=== PATIENT | male | born 1995 | race Caucasian/White ===

== ENCOUNTER 2016-05-30 20:07 | Emergency (ER) | payer BC, OTHER ==
[2016-05-30 21:23] VITALS: BP 162/75
[2016-05-30] MEDS ORDERED: Sulfamethox/Trimethoprim DS 800/160* TAB PO ONE (21:58)
[2016-05-30] MEDS ORDERED: Phenazopyridine TAB* 100 MG PO ONE (21:58)
--- NOTE | 2016-05-30 21:58 | UC ---
Complaint Male HPI - HPI Summary HPI Summary: 3 DAYS OF URINARY FREQUENCY AND DYSURIA. NO FEVER, BACK PAIN OR NAUSEA. DUE TO URINARY DISCOMFORT PT HAS NOT BEEN DRINKING VERY MUCH WATER IN AN ATTEMPT TO REDUCE HIS NEED TO URINATE. DENIES ANY H/O SEXUAL ACTIVITY. - History of Current Complaint Chief Complaint: UCLowerExtremity Stated Complaint: UTI COMPLAINT Time Seen by Provider: 05/30/16 21:50 Hx Obtained From: Patient Onset/Duration: Gradual Onset, Lasting Days, Still Present Timing: Constant Severity Initially: Moderate Severity Currently: Moderate Pain Intensity: 6 Pain Scale Used: 0-10 Numeric Character: Burning Aggravating Factor(s): Voiding Alleviating Factor(s): Nothing Associated Signs And Symptoms: Positive: Negative - Allergies/Home Medications Allergies/Adverse Reactions: Allergies Allergy/AdvReac Type Severity Reaction Status Date / Time No Known Allergies Allergy Verified 05/30/16 21:24 Home Medications: Home Medications Aspirin TAB* [Aspirin 325 MG TAB*] 05/30/16 [History] PMH/Surg Hx/FS Hx/Imm Hx Cardiovascular History Of: Reports: Hypertension - Surgical History Surgical History: Yes Surgery Procedure, Year, and Place: right ankle - Family History Known Family History: Positive: Hypertension - Social History Alcohol Use: None Substance Use Type: None Smoking Status (MU): Never Smoked Tobacco - Immunization History Most Recent Influenza Vaccination: not sure Review of Systems Constitutional: Negative Respiratory: Negative Cardiovascular: Negative Gastrointestinal: Negative Genitourinary: Dysuria, Frequency, Urgency All Other Systems Reviewed And Are Negative: Yes Physical Exam Triage Information Reviewed: Yes Appearance: Well-Appearing, No Pain Distress, Well-Nourished Vital Signs: Initial Vital Signs Temp 98.2 F 05/30/16 21:19 Pulse 102 05/30/16 21:19 Resp 18 05/30/16 21:19 BP 162/75 05/30/16 21:19 Pulse Ox 100 05/30/16 21:19 Vital Signs Reviewed: Yes Eyes: Positive: Conjunctiva Clear ENT: Positive: Hearing grossly normal Neck: Positive: Supple Respiratory: Positive: No respiratory distress, No accessory muscle use Cardiovascular: Positive: Pulses Normal Abdomen Description: Positive: Nontender, Soft. Negative: CVA Tenderness (R), CVA Tenderness (L), Distended, Guarding Musculoskeletal: Positive: No Edema Neurological: Positive: Alert Psychological: Positive: Age Appropriate Behavior Skin: Negative: rashes Diagnostics - Laboratory Diagnostic Studies Completed/Ordered: URINE DIP SP. GR > 1.030, TRACE LEUKS Complaint Male Course/Dx - Differential Dx/Diagnosis Provider Diagnoses: CYSTITIS Discharge - Discharge Plan Condition: Stable Disposition: HOME Prescriptions: Phenazopyridine TAB* [Pyridium TAB*] 200 mg PO TID #6 tab Sulfamethox/Trimethoprim DS* [Bactrim DS 800/160 TAB*] 1 tab PO BID #5 tab Patient Education Materials: Urinary Tract Infection in Men (ED) Referrals: Josefina Briones MD [Primary Care Provider] - If Needed Additional Instructions: WE WILL SEND YOUR URINE FOR CULTURE AND TREAT YOU BASED ON SYMPTOMS. IT IS POSSIBLE THAT YOUR SYMPTOMS ARE SIMPLY DUE TO VERY CONCENTRATED URINE. BE SURE TO HYDRATE, HYDRATE, HYDRATE. SEEK FOLLOW-UP IF NOT IMPROVING EXPECTED.
== END 2016-05-30 22:07 | disposition home or self-care (01) ==
LOC: UCEAST 20:07
DX: N30.90 Cystitis, unspecified without hematuria (principal)
CPT/HCPCS: 81003; 87086; 99212; A9270-GY; G0463

== ENCOUNTER 2016-05-31 09:43 | Emergency (ER) | payer BC, OTHER ==
[2016-05-31] MEDS ORDERED: HYDROmorphone* 1 MG/ML 1 ML SYR IV ONE (10:05)
[2016-05-31] MEDS: NS 0.9% 1000 ML* 2,000 ML IV ONE ×2 (10:13→13:13)
[2016-05-31] MEDS: Ondansetron INJ* 2 MG/ML VIAL IV ONE ×3 (10:13→15:25)
[2016-05-31 10:16] LABS: Hematocrit 45 % (42-52); Hemoglobin 14.7 g/dl (14.0-18.0); Mean Corpuscular HGB Conc 33 g/dl (31-36); Mean Corpuscular Hemoglobin 27 pg (27-31); Mean Corpuscular Volume 82 fL (80-94); Mean Platelet Volume 10 um3 (7.4-10.4); Red Blood Count 5.44 10^6/ul (4.0-5.4); Red Cell Distribution Width 14 % (10.5-15)
[2016-05-31] MEDS ORDERED: HYDROmorphone* 1 MG/ML 1 ML SYR IV SLOW PU ONE ×4 (10:22→15:25)
[2016-05-31 10:35] LABS: Albumin 4.6 g/dL (3.2-5.2); BUN/Creatinine Ratio 12.6 (8-20); EGFR African American 116.1 (>60); EGFR Non-African American 90.3 (>60); Globulin 3.8 g/dL (2-4); Potassium 3.9 mmol/L (3.5-5.0); Total Protein 8.4 g/dL (6.4-8.9)
[2016-05-31] MEDS ORDERED: Ondansetron INJ* 2 MG/ML VIAL ONE (10:40)
[2016-05-31] MEDS ORDERED: Ondansetron INJ* 2 MG/ML VIAL IV ONE ×2 (12:15→15:25)
[2016-05-31] MEDS ORDERED: Iohexol 300* (CONTRAST) 10 ML SDV IV ONE (13:44)
--- NOTE | 2016-05-31 14:41 | RAD ---
Indication: Pelvic pain, evaluate for abscess. Contrast: Administered 147.2 ml of OMNIPAQUE 300 mg/ml CT of the pelvis was performed after IV contrast administration. Coronal and sagittal reconstructed images were obtained. No retroperitoneal or pelvic lymphadenopathy is noted. The urinary bladder is unremarkable. No hernias are noted. Dilated small bowel noted. Small inguinal lymph nodes are noted. There is a fluid collection just below the tip of the penis measuring 3.2 x 3.6 cm which is just under the skin. This should be palpable. This is likely a fluid collection such as abscess rather than metastases. Clinical correlation is suggested. The testes are not visualized on this study. IMPRESSION: Just below the tip of the penis there is a fluid collection which appears subcutaneous measuring 3.6 x 3.2 cm which may represent a fluid collection such as an abscess. Clinical correlation is suggested. Alternatively this could represent the testes although this appears to be somewhat superficial for testes.
[2016-05-31] MEDS ORDERED: HYDROmorphone* 1 MG/ML 1 ML SYR ONE (15:24)
[2016-05-31] MEDS ORDERED: Piperac/Tazob 3.375 gm in NS* 3.375 GM/100 ML BAG IVPB ONE (15:26)
[2016-05-31] MEDS ORDERED: NS 0.9% 1000 ML* 2,000 ML IV ONE (16:08)
--- NOTE | 2016-05-31 16:37 | ED ---
Hugo Cm Salem, scribed for Jace Sotelo MD on 05/31/16 at 1103 . GI/ HPI - HPI Summary HPI Summary: Patient is a 20 y/o male who presents to the ED with penile pain for the past 2 days. He describes the pain as stabbing, but states he can urinate in spite of the pain. He denies fever, chills, swelling, or erythema. Pt is nauseated upon examination. Pain is exacerbated with recumbent position. 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 - History of Current Complaint Chief Complaint: EDUrogenitalProblems Time Seen by Provider: 05/31/16 10:46 Stated Complaint: PAIN IN PENIS Hx Obtained From: Patient Onset/Duration: Started Days Ago - 2 days. Severity: Moderate Current Severity: Moderate Pain Intensity: 10 Additional Locations for Males: Penis Pain Characteristics: Other: - Stabbing. Associated Signs and Symptoms: Positive: Nausea, Other: - No chills, swelling, or erythema.. Negative: Fever Additional Signs & Symptoms: Negative: Penile Swelling Aggravating Factor(s): Nothing Alleviating Factor(s): Position - Sitting up or stnading. - Allergy/Home Medications Allergies/Adverse Reactions: Allergies Allergy/AdvReac Type Severity Reaction Status Date / Time No Known Allergies Allergy Verified 05/30/16 21:24 PMH/Surg Hx/FS Hx/Imm Hx Cardiovascular History: Reports: Hx Hypertension - Surgical History Surgery Procedure, Year, and Place: right ankle Infectious Disease History: No Infectious Disease History: Denies: History Other Infectious Disease, Traveled Outside the [place] in Last 30 Days - Family History Known Family History: Positive: Hypertension - Social History Alcohol Use: None Substance Use Type: Reports: None Smoking Status (MU): Never Smoked Tobacco Review of Systems Negative: Fever, Chills Genitourinary: Other - No swelling or erythema. Positive: pain - Penile. All Other Systems Reviewed And Are Negative: Yes Physical Exam - Summary Physical Exam Summary: The patient is well-nourished in no acute distress. The skin is warm and diaphoretic. HEENT: The head is normocephalic and atraumatic. The pupils are equal and reactive. The conjunctivae are clear and without drainage. Nares are patent and without drainage. Mouth reveals moist mucous membranes and the throat is without erythema and exudate. The external ears are intact. The ear canals are patent and without drainage. The tympanic membranes are intact. Neck is supple with full range of motion and non-tender. There are no carotid bruits. Respiratory: Chest is non-tender. Lungs are clear to auscultation and breath sounds are symmetrical and equal. Cardiovascular: Hear is regular rate and rhythm. There is no murmur or rub auscultated. There is no peripheral edema and pulses are symmetrical and equal. Abdomen: The abdomen is soft and non-tender. Obese. No CVA tenderness. Musculoskeletal: There is no back pain noted. Extremities are non-tender with full range of motion. There is good capillary refill. There is no peripheral edema or calf tenderness elicited. exam: Penis buried into abd. Testicles descended and non-tender. No swelling or redness of testicles. Neurological: Patient is alert and oriented to person, place and time. The patient has symmetrical motor strength in all four extremities. Psychiatric: The patient has an appropriate affect and does not exhibit any anxiety or depression. Triage Information Reviewed: Yes Vital Signs On Initial Exam: Initial Vitals Temp Pulse Resp BP Pulse Ox 96.4 F 121 20 159/128 98 05/31/16 09:45 05/31/16 09:45 05/31/16 09:45 05/31/16 09:45 05/31/16 09:45 Vital Signs Reviewed: Yes - Jane Coma Scale Coma Scale Total: 15 Diagnostics - Vital Signs Vital Signs Temp Pulse Resp BP Pulse Ox 05/31/16 10:26 23 05/31/16 10:13 25 05/31/16 09:45 96.4 F 121 20 159/128 98 - Laboratory Lab Results: Lab Results 05/31/16 05/31/16 Range/Units 10:04 10:04 WBC 18.0 H (3.5-10.8) 10^3/ul RBC 5.44 H (4.0-5.4) 10^6/ul Hgb 14.7 (14.0-18.0) g/dl Hct 45 (42-52) % MCV 82 (80-94) fL MCH 27 (27-31) pg MCHC 33 (31-36) g/dl RDW 14 (10.5-15) % Plt Count 273 (150-450) 10^3/ul MPV 10 (7.4-10.4) um3 Neut % (Auto) 76.7 (38-83) % Lymph % (Auto) 16.2 L (25-47) % [place] % (Auto) 5.7 (1-9) % Eos % (Auto) 0.8 (0-6) % Baso % (Auto) 0.6 (0-2) % Absolute Neuts (auto) 13.9 H (1.5-7.7) 10^3/ul Absolute Lymphs (auto) 2.9 (1.0-4.8) 10^3/ul Absolute Monos (auto) 1.0 H (0-0.8) 10^3/ul Absolute Eos (auto) 0.1 (0-0.6) 10^3/ul Absolute Basos (auto) 0.1 (0-0.2) 10^3/ul Absolute Nucleated RBC 0 10^3/ul Nucleated RBC % 0 Sodium 137 (133-145) mmol/L Potassium 3.9 (3.5-5.0) mmol/L Chloride 101 (101-111) mmol/L Carbon Dioxide 23 (22-32) mmol/L Anion Gap 13 H (2-11) mmol/L BUN 13 (6-24) mg/dL Creatinine 1.03 (0.67-1.17) mg/dL Est GFR ( Amer) 116.1 (>60) Est GFR (Non-Af Amer) 90.3 (>60) BUN/Creatinine Ratio 12.6 (8-20) Glucose 133 H (70-100) mg/dL Calcium 10.0 (8.6-10.3) mg/dL Total Bilirubin 1.00 (0.2-1.0) mg/dL AST 36 (13-39) U/L ALT 50 (7-52) U/L Alkaline Phosphatase 103 (34-104) U/L Total Protein 8.4 (6.4-8.9) g/dL Albumin 4.6 (3.2-5.2) g/dL Globulin 3.8 (2-4) g/dL Albumin/Globulin Ratio 1.2 (1-3) Result Diagrams: 05/31/16 10:04 05/31/16 10:04 Lab Statement: Any lab studies that have been ordered have been reviewed, and results considered in the medical decision making process. - CT PELVIS CT Interpretation Completed By: Radiologist - IMPRESSION: Just below the tip of the penis there is a fluid collection which appears subcutaneous measuring 3.6 x 3.2 cm which may represent a fluid collection such as an abscess. Clinical correlation is suggested. Alternatively this could represent the testes although this appears to be somewhat superficial for testes. Re-Evaluation - Re-Evaluation First Eval Re-Evaluation Time: 15:17 Comment: Informed pt of consultations and discussed plan. Second Eval Re-Evaluation Time: 15:22 Comment: Still in pain. Will give pain medication and re-evaluate. Third Eval Re-Evaluation Time: 16:05 Comment: Discussed plan to transfer. Pt is agreeable. GIGU Course/Dx - Diagnoses Differential Diagnoses - Male: Phimosis/Paraphimosis, Renal Calculi, Sepsis, Testicular Torsion, Urinary Tract Infection, Other - infection Provider Diagnoses: Pelvic abscess, Congenital buried penis - Physician Notifications Discussed Care Of Patient With: Dr. Patel (Urologist) @ 1151. Dr. Harrison (pt' s specialist's office in [place], [place]) @ 1233. States pt shouldnt be having pain as his condition does not cause it. He is unable to offer any advice. Dr. Kaye (ED, [facility]) @ 7045. Will accept pt. Discharge - Discharge Plan Condition: Stable Disposition: TRANS HIGHER [facility] OF CARE FAC Referrals: Josefina Briones MD [Primary Care Provider] - The documentation as recorded by the Hugo mckeon Salem accurately reflects the service I personally performed and the decisions made by me, Jace Sotelo MD.
[2016-05-31 16:44] LABS: C Reactive Protein 15.75 mg/L (< 5.00)
[2016-05-31 17:08] VITALS: BP 182/109
[2016-05-31 17:20] LABS: Urine Bacteria Absent (Absent); Urine Bilirubin Negative (Negative); Urine Glucose Negative (Negative); Urine Nitrite Positive (Negative)
== END 2016-05-31 17:07 | disposition short-term general hospital (02) ==
LOC: ED 09:43
DX: Q55.64 Hidden penis (principal)
CPT/HCPCS: 36415; 72193; 80053; 81003; 81015; 83605; 85025; 86140; 96374; 99285; J1170; J2405; J2543; Q9967

== ENCOUNTER 2016-06-12 21:19 | Emergency (ER) | payer BC, OTHER ==
[2016-06-12 23:01] LABS: Urine Bacteria Absent (Absent); Urine Bilirubin Negative (Negative); Urine Glucose Negative (Negative); Urine Nitrite Positive (Negative)
[2016-06-12] MEDS ORDERED: traMADol TAB* 50 MG PO ONE (23:41)
[2016-06-13 00:59] LABS: Hematocrit 39 % (42-52); Hemoglobin 12.7 g/dl (14.0-18.0); Mean Corpuscular HGB Conc 33 g/dl (31-36); Mean Corpuscular Hemoglobin 27 pg (27-31); Mean Corpuscular Volume 82 fL (80-94); Mean Platelet Volume 10 um3 (7.4-10.4); Red Blood Count 4.75 10^6/ul (4.0-5.4); Red Cell Distribution Width 14 % (10.5-15); White Blood Count 15.1 10^3/ul (3.5-10.8)
[2016-06-13] MEDS ORDERED: Ciprofloxacin TAB* 500 MG PO ONE (01:06)
--- NOTE | 2016-06-13 01:15 | ED ---
GI/ HPI - HPI Summary HPI Summary: Patient presents with 3 days of worsening pain with urination and increased frequency. He is under the care of a urologist in [place] for other urinary and penile issues. He has not been in contact with that provider. He denies blood in his urine, fever, chills, N/V/D, but does report bilateral flank pain. - History of Current Complaint Chief Complaint: EDUrogenitalProblems Time Seen by Provider: 06/12/16 23:02 Stated Complaint: FLANK PAIN Hx Obtained From: Patient Onset/Duration: Started Days Ago Timing: Constant Severity: Mild Current Severity: Moderate Pain Intensity: 7 Location of Pain: Flank Pain Characteristics: Dull Associated Signs and Symptoms: Positive: Dysuria, Flank Pain, UTI Symptoms. Negative: Fever - Allergy/Home Medications Allergies/Adverse Reactions: Allergies Allergy/AdvReac Type Severity Reaction Status Date / Time No Known Allergies Allergy Verified 06/12/16 21:38 PMH/Surg Hx/FS Hx/Imm Hx Cardiovascular History: Reports: Hx Hypertension - Surgical History Surgery Procedure, Year, and Place: right ankle Infectious Disease History: No Infectious Disease History: Denies: History Other Infectious Disease, Traveled Outside the [place] in Last 30 Days - Family History Known Family History: Positive: Hypertension - Social History Occupation: Employed Full-time Lives: With Family Alcohol Use: None Substance Use Type: Reports: None Smoking Status (MU): Never Smoked Tobacco Review of Systems Negative: Fever, Chills Positive: dysuria, frequency, flank pain All Other Systems Reviewed And Are Negative: Yes Physical Exam - Summary Physical Exam Summary: Body habitus is extremely limiting to exam. Triage Information Reviewed: Yes Vital Signs On Initial Exam: Initial Vitals Temp Pulse Resp BP Pulse Ox 98 F 96 18 197/97 100 06/12/16 21:37 06/12/16 21:37 06/12/16 21:37 06/12/16 21:37 06/12/16 21:37 Vital Signs Reviewed: Yes Appearance: Positive: Well-Appearing, No Pain Distress, Obese - morbidly Skin: Positive: Warm, Skin Color Reflects Adequate Perfusion, Dry, Soft Head/Face: Positive: Normal Head/Face Inspection Eyes: Positive: EOMI, SUKHDEV, Conjunctiva Clear ENT: Positive: Hearing grossly normal Respiratory/Lung Sounds: Positive: Clear to Auscultation, Breath Sounds Present Cardiovascular: Positive: RRR Abdomen Description: Positive: Nontender, Soft, CVA Tenderness (R) - tender to light touch, CVA Tenderness (L) - tender to light touch. Negative: Distended, Guarding Bowel Sounds: Positive: Present Musculoskeletal: Negative: Edema Left, Edema Right Neurological: Positive: Sensory/Motor Intact, Alert, Oriented to Person Place, Time, [place] Bundle Intact Distally Psychiatric: Positive: Affect/Mood Appropriate AVPU Assessment: Alert - [place] Coma Scale Coma Scale Total: 15 Diagnostics - Vital Signs Vital Signs Temp Pulse Resp BP Pulse Ox 06/12/16 21:37 98 F 96 18 197/97 100 - Laboratory Lab Results: Lab Results 06/12/16 06/12/16 Range/Units 00:45 22:46 WBC 15.1 H (3.5-10.8) 10^3/ul RBC 4.75 (4.0-5.4) 10^6/ul Hgb 12.7 L (14.0-18.0) g/dl Hct 39 L (42-52) % MCV 82 (80-94) fL MCH 27 (27-31) pg MCHC 33 (31-36) g/dl RDW 14 (10.5-15) % Plt Count 197 (150-450) 10^3/ul MPV 10 (7.4-10.4) um3 Neut % (Auto) 67.6 (38-83) % Lymph % (Auto) 23.4 L (25-47) % [place] % (Auto) 7.0 (1-9) % Eos % (Auto) 1.0 (0-6) % Baso % (Auto) 1.0 (0-2) % Absolute Neuts (auto) 10.2 H (1.5-7.7) 10^3/ul Absolute Lymphs (auto) 3.5 (1.0-4.8) 10^3/ul Absolute Monos (auto) 1.0 H (0-0.8) 10^3/ul Absolute Eos (auto) 0.1 (0-0.6) 10^3/ul Absolute Basos (auto) 0.1 (0-0.2) 10^3/ul Absolute Nucleated RBC 0 10^3/ul Nucleated RBC % 0 Urine Color Yellow Urine Appearance Cloudy Urine pH 5.0 (5-9) Ur Specific [place] 1.015 (1.010-1.030) Urine Protein 2+(100 mg/dl) H (Negative) Urine Ketones Negative (Negative) Urine Blood 2+ H (Negative) Urine Nitrate Positive H (Negative) Urine Bilirubin Negative (Negative) Urine Urobilinogen Negative (Negative) Ur Leukocyte Esterase 3+ H (Negative) Urine WBC (Auto) 3+(>20/hpf) H (Absent) Urine RBC (Auto) 3+(>10/hpf) H (Absent) Ur Squamous Epith Cells Present H (Absent) Urine Bacteria Absent (Absent) Urine Glucose Negative (Negative) Result Diagrams: 06/12/16 00:45 06/12/16 00:45 Lab Statement: Any lab studies that have been ordered have been reviewed, and results considered in the medical decision making process. - Ultrasound No standard instances Ultrasound Interpretation: No Acute Changes - no hydronephrosis bilaterally Ultrasound Interpretation Completed By: Radiologist KANDICE Course/Dx - Course Course Of Treatment: The patient will be treated for his UTI and is encouraged to contact his specialist for evaluation and follow-up care. - Diagnoses Differential Diagnoses - Male: Cystitis, Pyelonephritis, Sepsis, Ureteral Calculi, Urethritis, Urinary Tract Infection Provider Diagnoses: UTI (urinary tract infection) Discharge - Discharge Plan Condition: Stable Disposition: HOME Prescriptions: Ciprofloxacin TAB* [Cipro 500 MG TAB*] 500 mg PO BID #19 tab Patient Education Materials: Urinary Tract Infection in Men (ED) Referrals: Josefina Briones MD [Primary Care Provider] - Additional Instructions: Please take the antibiotics prescribed until they are completely gone. Call your urologist tomorrow to let them know you were in the ED and your diagnosis. Follow-up with your primary care provider in 2-3 days if your symptoms persist. Return to the emergency department if symptoms worsen.
[2016-06-13 01:16] LABS: BUN/Creatinine Ratio 14.3 (8-20); C Reactive Protein 17.09 mg/L (< 5.00); Calcium 9.3 mg/dL (8.6-10.3); EGFR African American 162.5 (>60); EGFR Non-African American 126.3 (>60); Potassium 3.9 mmol/L (3.5-5.0); Total Bilirubin 0.5 mg/dL (0.2-1.0)
[2016-06-13] MEDS ORDERED: Ibuprofen TAB* 400 MG PO ONE (01:34)
[2016-06-13 01:53] VITALS: BP 175/90
--- NOTE | 2016-06-13 08:02 | RAD ---
INDICATION: Bilateral flank pain history of pyelonephritis. COMPARISON: There are no prior studies available for comparison. TECHNIQUE: Multiple real-time images of the kidneys were obtained. FINDINGS: The kidneys are normal in size shape and echogenicity. The right kidney measured 11.3 x 6.2 x 6.2 cm and the left kidney measured 12.1 x 6.3 x 6.0 cm. No significant focal abnormality or hydronephrosis was present. The spleen is enlarged measuring 16.7 x 6.9 x 6.8 cm. IMPRESSION: 1. NORMAL EXAM OF THE KIDNEYS. 2. SPLENOMEGALY.
== END 2016-06-13 01:52 | disposition home or self-care (01) ==
LOC: ED 21:19
DX: N39.0 Urinary tract infection, site not specified (principal); R10.84 Generalized abdominal pain; R30.0 Dysuria
CPT/HCPCS: 36415; 76775; 80053; 81003; 81015; 85025; 86140; 87077; 87086; 87186; 99282; A9270-GY

== ENCOUNTER 2016-07-06 10:42 | Emergency (ER) | payer BC, OTHER ==
[2016-07-06] MEDS ORDERED: Morphine INJ* 4 MG/ML 1 ML SYRINGE IV ONE (13:33)
[2016-07-06] MEDS ORDERED: Piperac/Tazob 3.375 gm in NS* 3.375 GM/100 ML BAG IVPB ONE (13:42)
[2016-07-06 13:49] LABS: Urine Bacteria 1+ (Absent); Urine Bilirubin Negative (Negative); Urine Glucose Negative (Negative); Urine Nitrite Negative (Negative)
[2016-07-06] MEDS: NS 0.9% 1000 ML* 2,000 ML IV ONE ×2 (14:01→15:23)
[2016-07-06 14:33] LABS: Hematocrit 40 % (42-52); Hemoglobin 12.9 g/dl (14.0-18.0); Mean Corpuscular HGB Conc 32 g/dl (31-36); Mean Corpuscular Hemoglobin 27 pg (27-31); Mean Corpuscular Volume 83 fL (80-94); Mean Platelet Volume 11 um3 (7.4-10.4); Red Blood Count 4.82 10^6/ul (4.0-5.4); Red Cell Distribution Width 15 % (10.5-15); White Blood Count 13.4 10^3/ul (3.5-10.8)
[2016-07-06] MEDS ORDERED: HYDROmorphone* 2 MG/ML 1 ML SYR IV SLOW PU ONE (14:33)
[2016-07-06 14:48] LABS: Albumin 4.1 g/dL (3.2-5.2); BUN/Creatinine Ratio 15.9 (8-20); Calcium 9.3 mg/dL (8.6-10.3); EGFR African American 184.4 (>60); EGFR Non-African American 143.4 (>60); Globulin 3.2 g/dL (2-4); Total Bilirubin 0.7 mg/dL (0.2-1.0); Total Protein 7.3 g/dL (6.4-8.9)
[2016-07-06 15:55] VITALS: BP 149/55
--- NOTE | 2016-07-06 18:51 | ED ---
Charles Cm Adam, scribed for Boogie Cox MD on 07/06/16 at 1330 . GI/ HPI - HPI Summary HPI Summary: Pt is a 20 year old male presenting with penis pain. 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 He is able to urinate but it is very painful to do so. He is scheduled for surgery on 08/02 at [facility]. Pt denies any testicular pain, fever, diaphoresis, chills, or discharge from the penis. - History of Current Complaint Chief Complaint: EDUrogenitalProblems Time Seen by Provider: 07/06/16 12:58 Stated Complaint: PENIS PAIN Pain Intensity: 7 - Allergy/Home Medications Allergies/Adverse Reactions: Allergies Allergy/AdvReac Type Severity Reaction Status Date / Time No Known Allergies Allergy Verified 06/12/16 21:38 PMH/Surg Hx/FS Hx/Imm Hx Cardiovascular History: Reports: Hx Hypertension - Surgical History Surgery Procedure, Year, and Place: right ankle Infectious Disease History: Denies: History Other Infectious Disease, Traveled Outside the in Last 30 Days - Family History Known Family History: Positive: Hypertension - Social History Alcohol Use: None Substance Use Type: Reports: None Smoking Status (MU): Never Smoked Tobacco Review of Systems Negative: Fever, Chills Negative: Erythema Negative: Sore Throat Negative: Chest Pain Negative: Shortness Of Breath, Cough Negative: Abdominal Pain, Vomiting, Nausea Positive: dysuria, pain - in the penis (worse during urination) Negative: Myalgia, Edema Negative: Rash All Other Systems Reviewed And Are Negative: Yes Physical Exam - Summary Physical Exam Summary: Constitutional: Well-developed, Well-nourished, Alert. (-) Distressed Skin: Warm, Dry HENT: Normocephalic; Atraumatic Eyes: Conjunctiva normal Neck: Musculoskeletal ROM normal neck. (-) JVD, (-) Stridor, (-) Tracheal deviation Cardio: Rhythm regular, rate normal, Heart sounds normal; Intact distal pulses; The pedal pulses are 2+ and symmetric. Radial pulses are 2+ and symmetric. (-) Murmur Pulmonary/Chest wall: Effort normal. (-) Respiratory distress, (-) Wheezes, (-) Rales Abd: Soft, (-) Tenderness, (-) Distension, (-) Guarding, (-) Rebound Musculoskeletal: (-) Edema Lymph: (-) Cervical adenopathy Neuro: Alert, Oriented x3 Psych: Mood and affect Normal Triage Information Reviewed: Yes Vital Signs On Initial Exam: Initial Vitals Temp Pulse Resp BP Pulse Ox 98.1 F 72 18 178/92 99 07/06/16 10:51 07/06/16 10:51 07/06/16 10:51 07/06/16 10:51 07/06/16 10:51 Vital Signs Reviewed: Yes Diagnostics - Vital Signs Vital Signs Temp Pulse Resp BP Pulse Ox 07/06/16 10:51 98.1 F 72 18 178/92 99 - Laboratory Lab Results: Lab Results 07/06/16 07/06/16 07/06/16 Range/Units 13:12 14:15 14:15 WBC 13.4 H (3.5-10.8) 10^3/ul RBC 4.82 (4.0-5.4) 10^6/ul Hgb 12.9 L (14.0-18.0) g/dl Hct 40 L (42-52) % MCV 83 (80-94) fL MCH 27 (27-31) pg MCHC 32 (31-36) g/dl RDW 15 (10.5-15) % Plt Count 206 (150-450) 10^3/ul MPV 11 H (7.4-10.4) um3 Neut % (Auto) 63.4 (38-83) % Lymph % (Auto) 28.9 (25-47) % [place] % (Auto) 5.8 (1-9) % Eos % (Auto) 1.2 (0-6) % Baso % (Auto) 0.7 (0-2) % Absolute Neuts (auto) 8.5 H (1.5-7.7) 10^3/ul Absolute Lymphs (auto) 3.9 (1.0-4.8) 10^3/ul Absolute Monos (auto) 0.8 (0-0.8) 10^3/ul Absolute Eos (auto) 0.2 (0-0.6) 10^3/ul Absolute Basos (auto) 0.1 (0-0.2) 10^3/ul Absolute Nucleated RBC 0.01 10^3/ul Nucleated RBC % 0.1 Sodium 136 (133-145) mmol/L Potassium 4.0 (3.5-5.0) mmol/L Chloride 105 (101-111) mmol/L Carbon Dioxide 22 (22-32) mmol/L Anion Gap 9 (2-11) mmol/L BUN 11 (6-24) mg/dL Creatinine 0.69 (0.67-1.17) mg/dL Est GFR ( Amer) 184.4 (>60) Est GFR (Non-Af Amer) 143.4 (>60) BUN/Creatinine Ratio 15.9 (8-20) Glucose 101 H (70-100) mg/dL Lactic Acid (0.5-2.0) mmol/L Calcium 9.3 (8.6-10.3) mg/dL Total Bilirubin 0.70 (0.2-1.0) mg/dL AST 27 (13-39) U/L ALT 36 (7-52) U/L Alkaline Phosphatase 85 (34-104) U/L Total Protein 7.3 (6.4-8.9) g/dL Albumin 4.1 (3.2-5.2) g/dL Globulin 3.2 (2-4) g/dL Albumin/Globulin Ratio 1.3 (1-3) Lipase 10 L (11.0-82.0) U/L Urine Color Yellow Urine Appearance Cloudy Urine pH 5.0 (5-9) Ur Specific [place] 1.027 (1.010-1.030) Urine Protein Negative (Negative) Urine Ketones Negative (Negative) Urine Blood Negative (Negative) Urine Nitrate Negative (Negative) Urine Bilirubin Negative (Negative) Urine Urobilinogen Negative (Negative) Ur Leukocyte Esterase Trace H (Negative) Urine WBC (Auto) 2+(11-20/hpf) H (Absent) Urine RBC (Auto) 1+(3-5/hpf) H (Absent) Ur Squamous Epith Cells Present H (Absent) Urine Bacteria 1+ H (Absent) Hyaline Casts Present H (Absent) Urine Glucose Negative (Negative) 07/06/16 Range/Units 14:15 WBC (3.5-10.8) 10^3/ul RBC (4.0-5.4) 10^6/ul Hgb (14.0-18.0) g/dl Hct (42-52) % MCV (80-94) fL MCH (27-31) pg MCHC (31-36) g/dl RDW (10.5-15) % Plt Count (150-450) 10^3/ul MPV (7.4-10.4) um3 Neut % (Auto) (38-83) % Lymph % (Auto) (25-47) % [place] % (Auto) (1-9) % Eos % (Auto) (0-6) % Baso % (Auto) (0-2) % Absolute Neuts (auto) (1.5-7.7) 10^3/ul Absolute Lymphs (auto) (1.0-4.8) 10^3/ul Absolute Monos (auto) (0-0.8) 10^3/ul Absolute Eos (auto) (0-0.6) 10^3/ul Absolute Basos (auto) (0-0.2) 10^3/ul Absolute Nucleated RBC 10^3/ul Nucleated RBC % Sodium (133-145) mmol/L Potassium (3.5-5.0) mmol/L Chloride (101-111) mmol/L Carbon Dioxide (22-32) mmol/L Anion Gap (2-11) mmol/L BUN (6-24) mg/dL Creatinine (0.67-1.17) mg/dL Est GFR ( Amer) (>60) Est GFR (Non-Af Amer) (>60) BUN/Creatinine Ratio (8-20) Glucose (70-100) mg/dL Lactic Acid 1.4 (0.5-2.0) mmol/L Calcium (8.6-10.3) mg/dL Total Bilirubin (0.2-1.0) mg/dL AST (13-39) U/L ALT (7-52) U/L Alkaline Phosphatase (34-104) U/L Total Protein (6.4-8.9) g/dL Albumin (3.2-5.2) g/dL Globulin (2-4) g/dL Albumin/Globulin Ratio (1-3) Lipase (11.0-82.0) U/L Urine Color Urine Appearance Urine pH (5-9) Ur Specific [place] (1.010-1.030) Urine Protein (Negative) Urine Ketones (Negative) Urine Blood (Negative) Urine Nitrate (Negative) Urine Bilirubin (Negative) Urine Urobilinogen (Negative) Ur Leukocyte Esterase (Negative) Urine WBC (Auto) (Absent) Urine RBC (Auto) (Absent) Ur Squamous Epith Cells (Absent) Urine Bacteria (Absent) Hyaline Casts (Absent) Urine Glucose (Negative) Result Diagrams: 07/06/16 14:15 07/06/16 14:15 Lab Statement: Any lab studies that have been ordered have been reviewed, and results considered in the medical decision making process. GIGU Course/Dx - Course Course Of Treatment: 13:34 - Call made to [facility]. Patient will be transferred to evaluate for possible pelvic abscess. - Diagnoses Provider Diagnoses: Pelvic abscess in male Discharge - Discharge Plan Condition: Stable Disposition: TRANS [facility] C[facility] FAC Referrals: Josefina Briones MD [Primary Care Provider] - The documentation as recorded by the Charles mckeon Adam accurately reflects the service I personally performed and the decisions made by Kenny virk Jerry, MD.
== END 2016-07-06 15:53 | disposition short-term general hospital (02) ==
LOC: ED 10:42
DX: N48.21 Abscess of corpus cavernosum and penis (principal); R30.0 Dysuria
CPT/HCPCS: 36415; 80053; 81003; 81015; 83605; 83690; 85025; 87077; 87086; 99282; J1170; J2270; J2543

== ENCOUNTER 2018-01-19 17:25 | Emergency (ER) | payer BC, OTHER ==
[2018-01-19 17:34] VITALS: BP 159/111
--- NOTE | 2018-01-19 17:37 | UC ---
Neck Pain HPI - HPI Summary HPI Summary: awoke 3 days ago with left sided neck pain and decreased motion----had similar in the past that resolved and so he canceled his MRI... no neuro motor deficit in left arm - History of Current Complaint Chief Complaint: UCUpperExtremity Stated Complaint: NECK PAIN Time Seen by Provider: 01/19/18 17:29 Hx Obtained From: Patient Onset/Duration Of Injury/Symptoms: Days - 3 Mechanism Of Injury: No Known Trauma Timing: Constant Onset/Duration: Sudden Onset, Still Present Pain Intensity: 5 Pain Scale Used: 0-10 Numeric Location: Discrete At: - lefty side of neck radiating in to top of shoulder Character: Aching, Stiff Aggravating Factors: Movement Alleviating Factors: Nothing Associated Signs & Symptoms: Positive: Negative - Allergies/Home Medications Allergies/Adverse Reactions: Allergies Allergy/AdvReac Type Severity Reaction Status Date / Time No Known Allergies Allergy Verified 01/19/18 17:34 Home Medications: Home Medications Acetaminophen [Extra Strength Non-Aspirin] 1 tab PO ONCE PRN 01/19/18 [History Confirmed 01/19/18] Ibuprofen TAB* [Advil TAB*] 600 mg PO ONCE PRN 01/19/18 [History Confirmed 01/19] PMH/Surg Hx/FS Hx/Imm Hx Previously Healthy: Yes - Surgical History Surgical History: Yes Surgery Procedure, Year, and Place: right ankle, URINARY SURGERY - Family History Known Family History: Positive: Hypertension - Social History Occupation: Student Lives: With Family Alcohol Use: Rare Substance Use Type: None Smoking Status (MU): Never Smoked Tobacco - Immunization History Most Recent Influenza Vaccination: not sure Review Of Systems Constitutional: Positive: Negative Skin: Positive: Negative Eyes: Positive: Negative ENT: Positive: Negative Respiratory: Positive: Negative Cardiovascular: Positive: Negative Gastrointestinal: Positive: Negative Genitourinary: Positive: Negative Musculoskeletal: Positive: Myalgia - left side of neck Neurological: Positive: Negative Psychological: Positive: Negative All Other Systems Reviewed And Are Negative: Yes Physical Exam Triage Information Reviewed: Yes Appearance: Well-Appearing, Pain Distress, Obese Vital Signs: Initial Vital Signs Temp 96.8 F 01/19/18 17:30 Pulse 78 01/19/18 17:30 Resp 20 01/19/18 17:30 BP 159/111 01/19/18 17:30 Pulse Ox 99 01/19/18 17:30 Vital Signs Reviewed: Yes Eye Exam: Normal Eyes: Positive: Conjunctiva Clear ENT Exam: Normal ENT: Positive: Normal ENT inspection, Hearing grossly normal. Negative: Trismus , Muffled voice, Hoarse voice Dental Exam: Normal Neck exam: Other Neck: Positive: No Lymphadenopathy, Other: - pain and tightness muscles left side of neck. Negative: Nuchal Rigidity Respiratory Exam: Normal Respiratory: Positive: Chest non-tender, No respiratory distress, No accessory muscle use Cardiovascular Exam: Normal Cardiovascular: Positive: RRR, Pulses Normal, Brisk Capillary Refill Musculoskeletal Exam: Normal Musculoskeletal: Positive: Strength Intact, ROM Intact, No Edema Neurological Exam: Normal Neurological: Positive: Alert, Muscle Tone Normal Psychological Exam: Normal Skin Exam: Normal Neck Pain Course/Dx - Course Course Of Treatment: nsaids, muscle relaxors heat follow with pcp in am, to get definative work up and treatment - Differential Dx/Diagnosis Provider Diagnoses: muscle spasm left side of neck and shoulder, elevated blood pressure without dx of hypertension Discharge - Sign-Out/Discharge Documenting (check all that apply): Patient Departure All imaging exams completed and their final reports reviewed: No Studies - Discharge Plan Condition: Stable Disposition: HOME Prescriptions: Cyclobenzaprine TAB* [Flexeril 10 MG TAB*] 10 mg PO TID PRN #15 tab PRN Reason: muscle spasm Ibuprofen TAB* [Motrin TAB* 800 MG] 800 mg PO Q8H PRN #30 tab PRN Reason: neck pain Patient Education Materials: Hypertension (ED), Muscle Spasm (ED), Acute Neck Pain (ED) Forms: *School Release Referrals: Josefina Briones MD [Primary Care Provider] - 1 Day - Billing Disposition and Condition Condition: STABLE Disposition: Home
[2018-01-19] MEDS ORDERED: Ketorolac INJ* 60 MG/2 ML VIAL IM ONE (17:43)
[2018-01-19] MEDS ORDERED: Cyclobenzaprine TAB* 10 MG PO ONE ×2 (17:44→17:50)
== END 2018-01-19 18:14 | disposition home or self-care (01) ==
LOC: UCEAST 17:25
DX: M62.838 Other muscle spasm (principal); R03.0 Elevated blood-pressure reading, without diagnosis of hypertension
CPT/HCPCS: 96372; 99212; A9270-GY; G0463; J1885

== ENCOUNTER 2018-01-20 19:41 | Emergency (ER) | payer BC ==
[2018-01-20] MEDS ORDERED: Lidocaine PATCH 5%* 1 PATCH TRANSDERM ONE (20:10)
--- NOTE | 2018-01-20 20:33 | ED ---
Neck Pain - HPI Summary HPI Summary: 22 year old male presents with neck pain for the past 4 days. He denies any injury. He states he woke up in the morning with the pain. He states he has occasional numbness into left arm. He states this happened 3 years ago and resolved on its own. He states he's seen in urgent care and was given ibuprofen and flexeril with minimal relief. He denies any urinary symptoms. No fevers. No headache. No other symptoms. No chest pain or shortness breath. - History of Current Complaint Chief Complaint: EDNeckComplaint Stated Complaint: NECK PAIN Time Seen by Provider: 01/20/18 19:58 Pain Intensity: 6 - Allergies/Home Medications Allergies/Adverse Reactions: Allergies Allergy/AdvReac Type Severity Reaction Status Date / Time No Known Allergies Allergy Verified 01/20/18 19:46 PMH/Surg Hx/FS Hx/Imm Hx Cardiovascular History: Reports: Hx Hypertension - Surgical History Surgery Procedure, Year, and Place: right ankle, URINARY SURGERY Infectious Disease History: No Infectious Disease History: Denies: History Other Infectious Disease, Traveled Outside the in Last 30 Days - Family History Known Family History: Positive: Hypertension - Social History Alcohol Use: Rare Substance Use Type: Reports: None Smoking Status (MU): Never Smoked Tobacco Review of Systems Negative: Fever Negative: Chest Pain Negative: Shortness Of Breath Positive: Myalgia - neck pain All Other Systems Reviewed And Are Negative: Yes Physical Exam Triage Information Reviewed: Yes Vital Signs On Initial Exam: Initial Vitals Temp Pulse Resp BP Pulse Ox 97.8 F 79 22 142/92 98 01/20/18 19:43 01/20/18 19:43 01/20/18 19:43 01/20/18 19:43 01/20/18 19:43 Vital Signs Reviewed: Yes Appearance: Positive: Well-Appearing Skin: Positive: Warm, Dry Head/Face: Positive: Normal Head/Face Inspection Eyes: Positive: Normal, Conjunctiva Clear ENT: Positive: Pharynx normal Neck: Positive: Other: - tenderness left side of neck, no midline tenderness Respiratory/Lung Sounds: Positive: Clear to Auscultation, Breath Sounds Present Cardiovascular: Positive: Normal, RRR Musculoskeletal: Positive: Strength/ROM Intact - left arm, Other - good pulses Neurological: Positive: Normal Psychiatric: Positive: Normal Diagnostics - Vital Signs Vital Signs Temp Pulse Resp BP Pulse Ox 11/12/18 19:43 97.8 F 79 22 142/92 98 - Laboratory Lab Statement: Any lab studies that have been ordered have been reviewed, and results considered in the medical decision making process. 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 greater than right. Neck Course/Dx - Course Course Of Treatment: 22 year old male presents with neck pain for the past 4 days. He denies any injury. He states he woke up in the morning with the pain. He states he has occasional numbness into left arm. He states this happened 3 years ago and resolved on its own. He states he's seen in urgent care and was given ibuprofen and flexeril with minimal relief. He denies any urinary symptoms. No fevers. No headache. No other symptoms. No chest pain or shortness breath. On exam tenderness over left sided neck. neurovascular Intact. CT shows degenerative changes. This likely is a torticollis and just needs time and muscle relaxer. Patient understands and agrees with plan. - Diagnoses Differential Dx/HQI/PQRI: Positive: Arthritis, Sprain, Torticollis Provider Diagnoses: Neck pain Discharge - Sign-Out/Discharge Documenting (check all that apply): Patient Departure - Discharge Plan Condition: Good Disposition: HOME Patient Education Materials: Cervical Strain (ED) Referrals: Josefina Briones MD [Primary Care Provider] - Additional Instructions: continue muscle relaxer heat area and work on ROM take tyenlol or ibuprofen every 6 hours as needed for pain Follow up with primary within 5 days Return to ED if develop any new or worsening symptoms - Billing Disposition and Condition Condition: GOOD Disposition: Home
[2018-01-20] MEDS ORDERED: Lidocaine Patch REMOVE* 1 NOTE MISC SCH (21:00)
[2018-01-20 21:56] VITALS: BP 140/71
== END 2018-01-20 21:55 | disposition home or self-care (01) ==
LOC: ED 19:41
DX: M54.2 Cervicalgia (principal); I10 Essential (primary) hypertension
CPT/HCPCS: 72125; 99281; A9270-GY

== ENCOUNTER 2018-02-25 18:00 | Emergency (ER) | payer BC ==
--- NOTE | 2018-02-25 18:31 | UC ---
Respiratory Complaint HPI - HPI Summary HPI Summary: 22 y/o male presents to the urgent care c/o productive cough w/ yellowish phlegm and chest congestion for the past week. he has developed wheezing for the past 2 days. he hasn't been able to sleep due to cough. He is constantly coughing. he has taken Dayquill and cough drops to alleviate symptoms w/o any improvement. Pt states symptoms started w/ mild nasal congestion and PND+. He has has Hx pf pneumonia in the past. Pt denies fever, SOB, chest pain, abdominal pain, N/v/d. - History of Current Complaint Chief Complaint: UCRespiratory Stated Complaint: COUGH, AND CHEST CONGESTION Time Seen by Provider: 02/25/18 18:30 Hx Obtained From: Patient Onset/Duration: Gradual Onset, Lasting Weeks - 1 week, Still Present, Worse Since - yesterday Timing: Intermittent Episodes Severity Initially: Mild Severity Currently: Moderate Pain Intensity: 0 Pain Scale Used: 0-10 Numeric Character: Cough: Productive, Sputum Description: - yellowish Aggravating Factors: Recumbent Position Alleviating Factors: OTC Meds Associated Signs And Symptoms: Positive: Dyspnea, Wheezing, URI, Nasal Congestion. Negative: Fever, Chills - Risk Factors Pulmonary Embolism Risk Factors: Negative Cardiac Risk Factors: Negative Pseudomonas Risk Factors: Negative Tuberculosis Risk Factors: Negative - Allergies/Home Medications Allergies/Adverse Reactions: Allergies Allergy/AdvReac Type Severity Reaction Status Date / Time No Known Allergies Allergy Verified 02/25/18 18:20 Home Medications: Home Medications D-Methorphan/PE/Acetaminophen [Vicks Dayquil Liquid] 1 liq PO Q6H PRN 02/25/18 [ History Confirmed 02/25/18] PMH/Surg Hx/FS Hx/Imm Hx Previously Healthy: Yes - Pt denies PMHX - Surgical History Surgical History: Yes Surgery Procedure, Year, and Place: right ankle, URINARY SURGERY - Family History Known Family History: Positive: Hypertension - Social History Occupation: Employed Full-time Lives: With Family Alcohol Use: Rare Substance Use Type: None Smoking Status (MU): Never Smoked Tobacco - Immunization History Most Recent Influenza Vaccination: not sure Review of Systems All Other Systems Reviewed And Are Negative: Yes Constitutional: Positive: Negative Skin: Positive: Negative Eyes: Positive: Negative ENT: Positive: Sore Throat - mild Respiratory: Positive: Shortness Of Breath, Cough - productive w/ yellowish phlegm, Other - wheezing Gastrointestinal: Positive: Negative Genitourinary: Positive: Negative Motor: Positive: Negative Neurovascular: Positive: Negative Musculoskeletal: Positive: Negative Neurological: Positive: Negative Psychological: Positive: Negative Is Patient Immunocompromised?: No Physical Exam - Summary Physical Exam Summary: Vital Signs Reviewed: Yes General: well developed, well nourished morbid obese male sitting in the examining table w/o any apparent distress Eyes: Positive: Conjunctiva Clear - PERRLA, EOMI, fundi grossly normal ENT: Positive: Normal ENT inspection, Hearing grossly normal, Pharynx normal, Nasal congestion - edematous and erythematous nasal mucosa, Nasal drainage - yellowish drainage, TMs normal. Negative: Tonsillar swelling, Tonsillar exudate Neck: Positive: Supple, Nontender, No Lymphadenopathy Respiratory: no orthopnea or dyspnea. Able to speak in full sentences, no retractions or accessory muscle use, no tripod position, stridor, or head bobbing. Positive breath sounds bilaterally. diffuse scattered wheezing and rhonchi on b/L lungs, no crackles or rales. Cardiovascular: Positive: RRR, No Murmur, Pulses Normal, Brisk Capillary Refill Abdomen Description: Positive: Nontender, No Organomegaly, Soft. Negative: CVA Tenderness (R), CVA Tenderness (L) Bowel Sounds: Positive: Present Musculoskeletal Exam: Normal Musculoskeletal: Positive: Strength Intact, ROM Intact, No Edema Neurological Exam: Normal Psychological Exam: Normal Skin Exam: Normal Triage Information Reviewed: Yes Vital Signs: Initial Vital Signs Temp 97.4 F 02/25/18 18:16 Pulse 77 02/25/18 18:16 Resp 16 02/25/18 18:16 BP 161/94 18 18:16 Pulse Ox 99 02/25/18 18:16 Diagnostic Evaluation - Laboratory O2 Sat by Pulse Oximetry: 99 Respiratory Course/Dx - Course Course Of Treatment: 22 y/o male presents to the urgent care c/o productive cough w/ yellowish phlegm and chest congestion for the past week. he has developed wheezing for the past 2 days. he hasn't been able to sleep due to cough. He is constantly coughing. he has taken Dayquill and cough drops to alleviate symptoms w/o any improvement. Pt states symptoms started w/ mild nasal congestion and PND+. He has has Hx pf pneumonia in the past. Pt denies fever, SOB, chest pain, abdominal pain, N/v/d. Hx obtained. Pt w/ scattered wheezes on bilaterally lungs, and mild rhonchi, good air entry B/L on examination. O2Sat:99%. chest X-ray ordered: possible B/l bronchopneumonia. final radiology reading still pending. Pt will be notified of any abnormality tomorrow. Pt given Prednisone PO and Duoneb Treatment to alleviate symptoms. Pt tolerated well treatment and lungs improved, Still mild weeaing in the RT lung, but pt felt better. Patient prescribed doxycycline PO, Prednisone taper dose, Albuterol inhaler and given Aerochamber. Kris advised to take Delsym or Robitussin to allevaite cough. The patient was recommended to increase fluid intake. Take medications as recommended. Pt advised to returned to the clinic or f/u w/ her PCP if symptoms do not improve.Pt's BP is elevated today advised to decrease salt in diet, monitor BP and f/u with PCP for further management. All D/C instructions explained. Patient understood and agree w/ plan of care. Pt left clinic hemodynamically stable , A&OX3 - Differential Dx/Diagnosis Differential Diagnosis/HQI/PQRI: Asthma, Bronchitis, Influenza, Laryngitis, Lower Resp Infection, Sinusitis, Other - pneumonia Provider Diagnosis: Wheezing, Community acquired pneumonia, Elevated BP without diagnosis of hypertension Discharge - Sign-Out/Discharge Documenting (check all that apply): Patient Departure - d/c home All imaging exams completed and their final reports reviewed: No - Discharge Plan Condition: Stable Disposition: HOME Prescriptions: Albuterol HFA INHALER* [Ventolin HFA Inhaler*] 1 - 2 puff INH Q6H PRN #1 mdi PRN Reason: Wheezing DOXYcycline CAP(*) [DOXYcycline 100MG CAP(*)] 100 mg PO BID #20 cap predniSONE TAB* [Deltasone 20 MG TAB*] 20 mg PO DAILY #8 tab Patient Education Materials: Community Acquired Pneumonia (ED), Low-Sodium Diet (ED), Wheezing (ED) Referrals: Josefina Briones MD [Primary Care Provider] - 3 Days Additional Instructions: 1-Please take full course of antibiotic to avoid resistance. [place] take Prednisone PO starting tomorrow. First dose given today 2-Take Delsym PO or Robitusin PO to alleviate cough . Use the albuterol inhaler w/ Aerochamber to alleviate cough. Increase fluid intake, rest and eat well. 3- If symptoms worsen or your develop SOB with fever and severe wheezing please go immediately to the ER further evaluation and treatment. 4- F/u with your PCP in 2-3 days for further if not improvement of symptoms. 5-Your BP is elevated today. please decrease salt in your diet, monitor BP and if it continues to be elevated please f/u with your PCP for further management - Billing Disposition and Condition Condition: STABLE Disposition: Home
[2018-02-25] MEDS ORDERED: predniSONE TAB* 20 MG PO ONE (18:44)
[2018-02-25] MEDS ORDERED: Albuterol/Ipratropium NEB.SOL* Albuterol 2.5 MG/Ipratropium 0.5 MG 3 ML INH ONE (18:44)
[2018-02-25 19:38] VITALS: BP 150/99
--- NOTE | 2018-02-26 08:59 | UC ---
- Progress Note Progress Note: I CALLED PT AND LEFT MSG TO CALL BACK. RADIOLOGY REPORT REVIEWED. CXR READ UNREMARKABLE. GIVEN PT WITH PROLONGED SX WHICH ARE WORSENING WOULD CONTINUE ABX PRESCRIBED. F/U PCP ADVISED. Course/Dx - Diagnoses Provider Diagnoses: Wheezing, Community acquired pneumonia, Elevated BP without diagnosis of hypertension Discharge - Sign-Out/Discharge Documenting (check all that apply): Post-Discharge Follow Up All imaging exams completed and their final reports reviewed: Yes - Discharge Plan Condition: Stable Disposition: HOME Prescriptions: Albuterol HFA INHALER* [Ventolin HFA Inhaler*] 1 - 2 puff INH Q6H PRN #1 mdi PRN Reason: Wheezing DOXYcycline CAP(*) [DOXYcycline 100MG CAP(*)] 100 mg PO BID #20 cap predniSONE TAB* [Deltasone 20 MG TAB*] 20 mg PO DAILY #8 tab Patient Education Materials: Community Acquired Pneumonia (ED), Low-Sodium Diet (ED), Wheezing (ED) Referrals: Josefina Briones MD [Primary Care Provider] - 3 Days Additional Instructions: 1-Please take full course of antibiotic to avoid resistance. [place] take Prednisone PO starting tomorrow. First dose given today 2-Take Delsym PO or Robitusin PO to alleviate cough . Use the albuterol inhaler w/ Aerochamber to alleviate cough. Increase fluid intake, rest and eat well. 3- If symptoms worsen or your develop SOB with fever and severe wheezing please go immediately to the ER further evaluation and treatment. 4- F/u with your PCP in 2-3 days for further if not improvement of symptoms. 5-Your BP is elevated today. please decrease salt in your diet, monitor BP and if it continues to be elevated please f/u with your PCP for further management - Billing Disposition and Condition Condition: STABLE Disposition: Home
--- NOTE | 2018-02-26 14:18 | UC ---
- Progress Note Progress Note: PATIENT CALLED BACK. I ADVISED HIM THAT HIS CHEST X-RAY WAS OFFICIALLY READ UNREMARKABLE. GIVEN THAT HIS SYMPTOMS HAVE BEEN WORSENING AND HE HAS BEEN SICK FOR OVER A WEEK HE IS TO CONTINUE TAKING HIS ANTIBIOTICS PRESCRIBED. PATIENT ALREADY HAS FOLLOW-UP APPOINTMENT WITH HIS PCP SCHEDULED. Course/Dx - Diagnoses Provider Diagnoses: Wheezing, Community acquired pneumonia, Elevated BP without diagnosis of hypertension Discharge - Sign-Out/Discharge Documenting (check all that apply): Post-Discharge Follow Up All imaging exams completed and their final reports reviewed: Yes - Discharge Plan Condition: Stable Disposition: HOME Prescriptions: Albuterol HFA INHALER* [Ventolin HFA Inhaler*] 1 - 2 puff INH Q6H PRN #1 mdi PRN Reason: Wheezing DOXYcycline CAP(*) [DOXYcycline 100MG CAP(*)] 100 mg PO BID #20 cap predniSONE TAB* [Deltasone 20 MG TAB*] 20 mg PO DAILY #8 tab Patient Education Materials: Community Acquired Pneumonia (ED), Low-Sodium Diet (ED), Wheezing (ED) Referrals: Josefina Briones MD [Primary Care Provider] - 3 Days Additional Instructions: 1-Please take full course of antibiotic to avoid resistance. [place] take Prednisone PO starting tomorrow. First dose given today 2-Take Delsym PO or Robitusin PO to alleviate cough . Use the albuterol inhaler w/ Aerochamber to alleviate cough. Increase fluid intake, rest and eat well. 3- If symptoms worsen or your develop SOB with fever and severe wheezing please go immediately to the ER further evaluation and treatment. 4- F/u with your PCP in 2-3 days for further if not improvement of symptoms. 5-Your BP is elevated today. please decrease salt in your diet, monitor BP and if it continues to be elevated please f/u with your PCP for further management - Billing Disposition and Condition Condition: STABLE Disposition: Home
== END 2018-02-25 19:34 | disposition home or self-care (01) ==
LOC: UCEAST 18:00
DX: J18.9 Pneumonia, unspecified organism (principal); R03.0 Elevated blood-pressure reading, without diagnosis of hypertension; R06.2 Wheezing
CPT/HCPCS: 71046; 99212; A9270-GY; G0463; J7512

== ENCOUNTER 2018-11-14 23:49 | Emergency (ER) | payer BC ==
[2018-11-15] MEDS ORDERED: Al Hydrox/Mg Hydrox/Simet LIQ* 30 ML UDC PO ONE (00:36)
[2018-11-15 01:11] LABS: ABS Basophils 0.1 10^3/ul (0-0.2); ABS Eosinophils 0.1 10^3/ul (0-0.6); ABS Lymphocytes 2.4 10^3/ul (1.0-4.8); ABS Monocytes 0.6 10^3/ul (0-0.8); ABS Neutrophils 8.1 10^3/ul (1.5-7.7); Eosinophil % 0.9 %; Hematocrit 38 % (42-52); Hemoglobin 12.3 g/dL (14.0-18.0); Mean Corpuscular HGB Conc 33 g/dL (31-36); Mean Corpuscular Hemoglobin 27 pg (27-31); Mean Corpuscular Volume 82 fL (80-94); Mean Platelet Volume 9.2 fL (7.4-10.4); Platelet Count 185 10^3/uL (150-450); Red Blood Count 4.63 10^6 /uL (4.18-5.48); Red Cell Distribution Width 15 % (10-15); White Blood Count 11.3 10^3/uL (3.5-10.8)
[2018-11-15 01:29] LABS: Albumin 3.8 g/dL (3.2-5.2); Albumin/Globulin Ratio 1.2 (1-3); BUN/Creatinine Ratio 12.7 (8-20); EGFR African American 164.9 (>60); EGFR Non-African American 136.3 (>60); Globulin 3.3 g/dL (2-4); Magnesium 1.8 mg/dL (1.9-2.7); Total Bilirubin 0.7 mg/dL (0.2-1.0); Total Protein 7.1 g/dL (6.4-8.9)
--- NOTE | 2018-11-15 01:34 | ED ---
HPI Chest Pain - HPI Summary HPI Summary: 22-year-old male presents to the emergency room by private vehicle with complaints of chest pain and palpitations. States he was driving when he had a sudden onset of left-sided chest pain which he describes as an "electric shock feeling" which was immediately followed by a sensation of his heart racing. States he immediately pulled over his car and called 911 however by the time the paramedics had arrived his symptoms had subsided so he declined transport and came by private vehicle. He states that the palpitations lasted approximately 1-2 minutes. States he continues to have some "tingling" sensation in his mid chest. He reports that he has been having some frequent heartburn. He does have a past history of GERD and was previously on a PPI but was taken off of this. Patient also reports a history of high blood pressure and was on medication for a while but states that his primary care provider also discontinued these medications. No significant family history of cardiac issues. Patient reports a history of anxiety with panic attacks in the past but states symptoms tonight were not similar to his past panic attacks. Denies fever, chills, dizziness, lightheadedness, diaphoresis, shortness of breath, abdominal pain, nausea, or vomiting. - History of Current Complaint Chief Complaint: EDChestPainROMI Time Seen by Provider: 11/15/18 00:05 Hx Obtained From: Patient Pain Intensity: 2 - Allergy/Home Medications Allergies/Adverse Reactions: Allergies Allergy/AdvReac Type Severity Reaction Status Date / Time No Known Allergies Allergy Verified 02/25/18 18:20 Home Medications: Home Medications NK [No Home Medications Reported] 11/15/18 [History Confirmed 11/15/18] PMH/Surg Hx/FS Hx/Imm Hx Endocrine/Hematology History: Denies: Hx Blood Disorders Cardiovascular History: Reports: Hx Hypertension Denies: Hx Atrial Fibrillation, Hx Coronary Artery Disease, Hx Supraventricular Ventricular Tachycardia Respiratory History: Denies: Hx Pulmonary Embolism, Hx Sleep Apnea GI History: Reports: Hx Gastroesophageal Reflux Disease History: Denies: Hx Renal Disease Psychiatric History: Reports: Hx Anxiety, Hx Panic Disorder - Surgical History Surgical History: Yes Surgery Procedure, Year, and Place: right ankle, URINARY SURGERY Hx Anesthesia Reactions: No Infectious Disease History: No Infectious Disease History: Denies: History Other Infectious Disease, Traveled Outside the [place] in Last 30 Days - Family History Known Family History: Positive: Hypertension Negative: Cardiac Disease, Diabetes, Renal Disease, Respiratory Disease, Blood Disorder - Social History Lives: With Family Alcohol Use: Rare Substance Use Type: Reports: None Hx Tobacco Use: No Smoking Status (MU): Never Smoked Tobacco Review of Systems Negative: Fever, Chills Positive: Palpitations, Chest Pain Negative: Shortness Of Breath, Cough Negative: Abdominal Pain, Vomiting, Nausea Positive: no symptoms reported Musculoskeletal: Negative Skin: Negative Neurological: Negative Psychological: Normal All Other Systems Reviewed And Are Negative: Yes Physical Exam - Summary Physical Exam Summary: GENERAL APPEARANCE: Alert and cooperative, morbidly obese young adult male who appears anxious but in no acute distress. EYES: Conjunctiva clear. No drainage. PERRL, EOM intact. Vision is grossly intact. EARS: External auditory canals and tympanic membranes clear, hearing grossly intact. NOSE: No nasal discharge. THROAT: Pharynx normal. No tonsilar inflammation, swelling, exudate, or lesions. Uvula midline. NECK: Neck supple, non-tender without lymphadenopathy. CARDIAC: Normal S1 and S2. No S3, S4 or murmurs. Rhythm is regular. There is no peripheral edema, cyanosis or pallor. Extremities are warm and well perfused. Capillary refill is less than 2 seconds. Peripheral pulses intact. LUNGS: Clear to auscultation without rales, rhonchi, wheezing or diminished breath sounds. ABDOMEN: Positive bowel sounds. Soft, nondistended, nontender. No guarding or rebound. No masses or hepatosplenomegally. MUSKULOSKELETAL: ROM intact to all extremities. No joint erythema or tenderness. Normal muscular development. Normal gait. NEUROLOGICAL: Strength and sensation symmetric and intact throughout. SKIN: Skin normal color, texture and turgor with no lesions or eruptions. Triage Information Reviewed: Yes Vital Signs On Initial Exam: Initial Vitals Temp Pulse Resp BP Pulse Ox 97.4 F 106 18 169/100 96 11/14/18 23:57 11/14/18 23:57 11/14/18 23:57 11/14/18 23:57 11/14/18 23:57 Vital Signs Reviewed: Yes Diagnostics - Vital Signs Vital Signs Temp Pulse Resp BP Pulse Ox 11/15/18 01:00 86 22 95 11/15/18 00:48 88 18 151/99 95 11/15/18 00:32 94 11/15/18 00:18 95 15 153/94 98 11/15/18 00:17 100 20 97 11/14/18 23:57 97.4 F 106 18 169/100 96 - Laboratory Lab Results: Lab Results 11/15/18 Range/Units 01:04 WBC 11.3 H (3.5-10.8) 10^3/uL RBC 4.63 (4.18-5.48) 10^6 /uL Hgb 12.3 L (14.0-18.0) g/dL Hct 38 L (42-52) % MCV 82 (80-94) fL MCH 27 (27-31) pg MCHC 33 (31-36) g/dL RDW 15 (10-15) % Plt Count 185 (150-450) 10^3/uL MPV 9.2 (7.4-10.4) fL Neut % (Auto) 72.4 % Lymph % (Auto) 21.0 % Labette % (Auto) 5.2 % Eos % (Auto) 0.9 % Baso % (Auto) 0.5 % Absolute Neuts (auto) 8.1 H (1.5-7.7) 10^3/ul Absolute Lymphs (auto) 2.4 (1.0-4.8) 10^3/ul Absolute Monos (auto) 0.6 (0-0.8) 10^3/ul Absolute Eos (auto) 0.1 (0-0.6) 10^3/ul Absolute Basos (auto) 0.1 (0-0.2) 10^3/ul Absolute Nucleated RBC 0.0 10^3/ul Nucleated RBC % 0.0 Result Diagrams: 11/15/18 01:04 11/15/18 01:04 Lab Statement: Any lab studies that have been ordered have been reviewed, and results considered in the medical decision making process. - EKG No standard instances Cardiac Rate: NL - Rate 98 EKG Rhythm: Sinus Rhythm ST Segment: Normal Ectopy: None Summary of EKG Findings: NSR at a rate of 98. No ectopy, MARY, or T-wave abdnormalities noted. No previous EKG available for comparison. Chest Pain Course/Dx - Course Course Of Treatment: 22-year-old male presents to the emergency room by private vehicle with complaints of chest pain and palpitations. States he was driving when he had a sudden onset of left-sided chest pain which he describes as an "electric shock feeling" which was immediately followed by a sensation of his heart racing. States he immediately pulled over his car and called 911 however by the time the paramedics had arrived his symptoms had subsided so he declined transport and came by private vehicle. He states that the palpitations lasted approximately 1-2 minutes. States he continues to have some "tingling" sensation in his mid chest. He reports that he has been having some frequent heartburn. He does have a past history of GERD and was previously on a PPI but was taken off of this. Patient also reports a history of high blood pressure and was on medication for a while but states that his primary care provider also discontinued these medications. No significant family history of cardiac issues. Patient reports a history of anxiety with panic attacks in the past but states symptoms tonight were not similar to his past panic attacks. Denies fever, chills, dizziness, lightheadedness, diaphoresis, shortness of breath, abdominal pain, nausea, or vomiting. Afebrile. Hypertensive otherwise vital signs stable. Patient's exam was overall unremarkable. EKG showed normal sinus rhythm at a rate of [address] elevation, ectopy, or T-wave abnormalities. Lab work was remarkable for a mildly elevated white blood cell count of 11.3, a mild normocytic anemia with a hemoglobin of 12.3 and hematocrit 38, his magnesium was mildly decreased at 1.8, troponin was 0.00, and a normal TSH of 2.28. I reviewed the results with the patient. I feel that he is safe for discharge at this time. I am recommending that he have close follow-up for further evaluation of his palpitations either with his primary care provider or with the [facility]. Anticipatory guidance and warning symptoms are reviewed with the patient. Verbalizes understanding and agrees with plan of care. - Chest Pain Differential Diagnosis/HQI/PQRI: Acute KS, ACS, GI Disease, Pulmonary Embolism, Other: - Arrythmia - Diagnoses Provider Diagnoses: Palpitations Discharge ED - Sign-Out/Discharge Documenting (check all that apply): Patient Departure Patient Received Moderate/Deep Sedation with Procedure: No - Discharge Plan Condition: Stable Disposition: HOME Patient Education Materials: Heart Palpitations (ED) Referrals: [facility] [Outside] Josefina Briones MD [Primary Care Provider] - 3 Days Additional Instructions: Your EKG that was performed in the emergency room tonight was normal. Your lab work was also stable and you had no episodes of abnormal heartbeats during your stay here. I cannot say for sure the cause of your symptoms however I would recommend that you have further workup for a possible heart arrhythmia. Try to avoid any caffeine as this can sometimes trigger heart palpitations. Follow-up with your primary care provider or at the [facility] in 3 days for further evaluation of your symptoms. Call first thing Saturday to make an appointment. Return to the emergency room if you have persistent palpitations, you become weak or lightheaded, have severe chest pain, are short of breath, or have any worsening of symptoms. - Billing Disposition and Condition Condition: STABLE Disposition: Home
[2018-11-15 01:43] LABS: TSH (Thyroid Stimulating Horm) 2.28 mcIU/mL (0.34-5.60)
[2018-11-15 02:05] VITALS: BP 164/88
== END 2018-11-15 02:05 | disposition home or self-care (01) ==
LOC: ED 23:49
DX: R07.9 Chest pain, unspecified (principal); R00.2 Palpitations; I10 Essential (primary) hypertension; K21.9 Gastro-esophageal reflux disease without esophagitis; F41.9 Anxiety disorder, unspecified
CPT/HCPCS: 36415; 80053; 83735; 84443; 84484; 85025; 93005; 99283; A9270-GY

== ENCOUNTER 2018-11-22 18:06 | Emergency (ER) | payer BC ==
--- NOTE | 2018-11-22 18:33 | ED ---
HPI Chest Pain - HPI Summary HPI Summary: 22 year old M presenting to [facility] accompanied by mother complains of chest pain with associated shortness of breath, left arm numbness, left arm pain, light headedness, and weakness since 1 hour ago while driving. Patient states his symptoms have improved slightly since onset 1 hour ago. The patient rates the pain 3/10 in severity. Symptoms aggravated by nothing. Symptoms alleviated by nothing. Patient states he had a similar episode last week. - History of Current Complaint Chief Complaint: EDChestPainROMI Time Seen by Provider: 11/22/18 18:22 Hx Obtained From: Patient Onset/Duration: Started Hours Ago - 1, Still Present Timing: Constant Current Severity: Mild Pain Intensity: 3 Pain Scale Used: 0-10 Numeric Aggravating Factor(s): Nothing Alleviating Factor(s): Nothing Associated Signs and Symptoms: Positive: Other: - shortness of breath, left arm numbness, left arm pain, light headedness, and weakness - Allergy/Home Medications Allergies/Adverse Reactions: Allergies Allergy/AdvReac Type Severity Reaction Status Date / Time No Known Allergies Allergy Verified 11/22/18 18:15 PMH/Surg Hx/FS Hx/Imm Hx Endocrine/Hematology History: Denies: Hx Blood Disorders Cardiovascular History: Reports: Hx Hypertension Denies: Hx Atrial Fibrillation, Hx Coronary Artery Disease Respiratory History: Denies: Hx Pulmonary Embolism, Hx Sleep Apnea GI History: Reports: Hx Gastroesophageal Reflux Disease History: Denies: Hx Renal Disease Psychiatric History: Reports: Hx Anxiety, Hx Panic Disorder - Surgical History Surgery Procedure, Year, and Place: right ankle, URINARY SURGERY Hx Anesthesia Reactions: No Infectious Disease History: No Infectious Disease History: Denies: History Other Infectious Disease, Traveled Outside the [place] in Last 30 Days - Family History Known Family History: Positive: Hypertension Negative: Cardiac Disease, Diabetes, Renal Disease, Respiratory Disease, Blood Disorder - Social History Alcohol Use: Rare Hx Substance Use: No Substance Use Type: Reports: None Hx Tobacco Use: No Smoking Status (MU): Never Smoked Tobacco Review of Systems Positive: Chest Pain Positive: Shortness Of Breath Positive: Other - left arm pain Neurological: Other - light headedness Positive: Weakness, Numbness - left arm All Other Systems Reviewed And Are Negative: Yes Physical Exam - Summary Physical Exam Summary: Appearance: The patient is morbidly obese and in no acute distress and in no acute pain. Skin: The skin is warm and dry, and skin color reflects adequate perfusion. HEENT: The head is normocephalic and atraumatic. The pupils are equal and reactive. The conjunctivae are clear and without drainage. Nares are patent and without drainage. Mouth reveals moist mucous membranes, and the throat is without erythema and exudate. The external ears are intact. The ear canals are patent and without drainage. The tympanic membranes are intact. Neck: The neck is supple with full range of motion and non-tender. There are no carotid bruits. There is no neck vein distension. Respiratory: Chest is non-tender. Lungs are clear to auscultation and breath sounds are symmetrical and equal. Cardiovascular: Heart is regular rate and rhythm. There is no murmur or rub auscultated. There is no peripheral edema and pulses are symmetrical and equal. Abdomen: The abdomen is soft and non-tender. There are normal bowel sounds heard in all four quadrants and there is no organomegaly palpated. Musculoskeletal: There is no back tenderness noted. Extremities are non-tender with full range of motion. There is good capillary refill. There is no peripheral edema or calf tenderness elicited. Neurological: Patient is alert and oriented to person, place and time. The patient has symmetrical motor strength in all four extremities. Cranial nerves are grossly intact. Deep tendon reflexes are symmetrical and equal in all four extremities. Psychiatric: The patient has an appropriate affect and does not exhibit any anxiety or depression Triage Information Reviewed: Yes Vital Signs On Initial Exam: Initial Vitals Temp Pulse Resp BP Pulse Ox 96.8 F 100 22 180/86 97 11/22/18 18:12 11/22/18 18:12 11/22/18 18:12 11/22/18 18:12 11/22/18 18:12 Vital Signs Reviewed: Yes Diagnostics - Vital Signs Vital Signs Temp Pulse Resp BP Pulse Ox 11/22/18 18:12 96.8 F 100 22 180/86 97 - Laboratory Result Diagrams: 11/22/18 18:28 11/22/18 18:28 Lab Statement: Any lab studies that have been ordered have been reviewed, and results considered in the medical decision making process. - EKG 1810 Cardiac Rate: NL - 93 BPM EKG Rhythm: Sinus Rhythm Summary of EKG Findings: Normal sinus rhythm, normal ST, no ectopy, no STEMI Re-Evaluation - Re-Evaluation First Eval Re-Evaluation Time: 21:42 Comment: second troponin is 0.00. patient updated on plan of care. discussed dispo plan. patient will be discharged home. patient is agreeable to admission Chest Pain Course/Dx - Course Course Of Treatment: Mr. Nickerson presented to the emergency department after the sudden onset of chest pain while he was driving. This is a very similar presentation to his previous recent visit where he was ruled out. He is again placed on a monitor and evaluated with EKG, chest x-ray and labs including a delayed troponin and d-dimer which are negative. I recommended follow-up with his PCP. - Diagnoses Provider Diagnoses: Chest pain Discharge ED - Sign-Out/Discharge Documenting (check all that apply): Patient Departure - Discharge Patient Received Moderate/Deep Sedation with Procedure: No - Discharge Plan Condition: Stable Disposition: HOME Patient Education Materials: Chest Pain (ED) Referrals: Josefina Briones MD [Primary Care Provider] - 2 Days Additional Instructions: Follow up with your primary care provider in the next 2-3 days. Return to the Emergency Department for new or worsening symptoms. - Billing Disposition and Condition Condition: STABLE Disposition: Home - Attestation Statements Document Initiated by Scribe: Yes Documenting Scribe: Elis Urbina Provider For Whom Ariana is Documenting (Include Credential): Johnny Beard MD Scribe Attestation: IElis, scribed for Johnny Beard MD on 11/22/18 at 2144. Scribe Documentation Reviewed: Yes Provider Attestation: The documentation as recorded by the Elis mckeon accurately reflects the service I personally performed and the decisions made by me, Johnny Beard MD Status of Scribe Document: Viewed
[2018-11-22 18:44] LABS: INR 1.15 (0.82-1.09)
[2018-11-22 18:45] LABS: ABS Eosinophils 0.1 10^3/ul (0-0.6); ABS Lymphocytes 2.2 10^3/ul (1.0-4.8); ABS Monocytes 0.4 10^3/ul (0-0.8); ABS Neutrophils 5.9 10^3/ul (1.5-7.7); Hematocrit 43 % (42-52); Hemoglobin 13.6 g/dL (14.0-18.0); Lymphocyte % 25.4 %; Mean Corpuscular HGB Conc 31 g/dL (31-36); Mean Corpuscular Hemoglobin 27 pg (27-31); Mean Corpuscular Volume 87 fL (80-94); Mean Platelet Volume 10.9 fL (7.4-10.4); Nucleated Red Blood Cells % 0.3; Platelet Count 189 10^3/uL (150-450); Red Blood Count 5.01 10^6 /uL (4.18-5.48); Red Cell Distribution Width 16 % (10-15); White Blood Count 8.6 10^3/uL (3.5-10.8)
[2018-11-22 18:48] LABS: Albumin 3.9 g/dL (3.2-5.2); Potassium 3.9 mmol/L (3.5-5.0); Total Bilirubin 0.5 mg/dL (0.2-1.0)
[2018-11-22 18:54] LABS: Albumin/Globulin Ratio 1.4 (1-3); EGFR African American 150.2 (>60); EGFR Non-African American 124.1 (>60); Globulin 2.8 g/dL (2-4); Total Protein 6.7 g/dL (6.4-8.9)
[2018-11-22] MEDS ORDERED: Ketorolac INJ* 30 MG/ML 1 ML VIAL IM ONE (19:04)
[2018-11-22 21:56] VITALS: BP 148/64
== END 2018-11-22 21:56 | disposition home or self-care (01) ==
LOC: ED 18:06
DX: R07.9 Chest pain, unspecified (principal); K21.9 Gastro-esophageal reflux disease without esophagitis; F41.9 Anxiety disorder, unspecified; I10 Essential (primary) hypertension
CPT/HCPCS: 36415; 80053; 84484; 85025; 85379; 85610; 93005; 96372; 99282; J1885